=== PATIENT | female | born 1960 | race Caucasian/White ===

== ENCOUNTER 2019-06-06 16:07 | Emergency (ER) | payer BC, OTHER ==
--- NOTE | 2019-06-06 16:19 | ER Document Report ---
ED General - General Chief Complaint: Decreased LOC Stated Complaint: POSSIBLE OVERDOSE Time Seen by Provider: 06/06/19 16:15 Primary Care Provider: [facility] [Provider Group] - Follow up as needed ALEXY KUMAR [NO LOCAL MD] - Follow up as needed Mode of Arrival: Stretcher Information source: Patient - initially response team (ICU md, ED team RNs) Cannot obtain history due to: Altered mental status - HPI Notes: 59 female brought in by son who said about 10 minutes prior to his arrival she had used intravenous heroin but it stopped breathing he therefore drove her immediately to the prior ER entrance at [facility] which is now the ICU therefore ICU team responded found she was not breathing had thready peripheral distal pulses they gave her initially 1 mg IO Narcan then 1 mg IV she is transported to the emergency department here breathing spontaneously verbal opening eyes spontaneously moving all extremities she did vomit once prior to getting into the ED but did not aspirate it appeared per team. in ED she required no further dosing of narcan to sustain spontaneous breathing. allowed to sleep in ED foew hours then talked to her prior to d/c. she has been clean for 3 yr, says in moment of sniffing heroine w/ her son when they were going to ?[employer]? to ask people for money--he scored the "heroine" and then without thinking she did it too. she is too confused to tell me if it was usual source etc. But claims she doesn' tthink she'd do it again [place] as this is her 1st od she says, and it scares here hearing she almost , that her greathing stopped and when they found her she had thready pulses. she is already active in a support/rehab program "[facility] a women's group she says and will immediately be using them as her main support for this. - Related Data Allergies/Adverse Reactions: No Known Allergies Allergy (Unverified 06/06/19 17:21) Past Medical History - General Cannot obtain history due to: Altered mental status - Social History Smoking Status: Unknown if Ever Smoked Frequency of alcohol use: None - she denies any Drug Abuse: Heroin Lives with: Family - and son. son has a [employer] phone and working car. 39 y/o, lives w/ mom/dad. Family History: Reviewed & Not Pertinent Patient has suicidal ideation: No Patient has homicidal ideation: No Review of Systems - Review of Systems Constitutional: No symptoms reported EENT: No symptoms reported Cardiovascular: No symptoms reported Respiratory: No symptoms reported Gastrointestinal: No symptoms reported Genitourinary: No symptoms reported Female Genitourinary: No symptoms reported Musculoskeletal: No symptoms reported Skin: No symptoms reported Hematologic/Lymphatic: No symptoms reported Neurological/Psychological: No symptoms reported Physical Exam - Vital signs Vitals: Temp Resp BP Pulse Ox 97.5 F 26 H 126/85 H 100 06/06/19 16:14 06/06/19 16:14 06/06/19 16:14 06/06/19 16:14 Interpretation: Normal - Notes Notes: after 2nd 2 mg dose narcan, on arrigal to ED pt breathing spontaneously, vs wnl, no hypoxia noted inititally. very sleepy initially arousable coherent then mumbles as falls back asleep in first few hours. then last 1-2 hr pre d/c, able to stay awake answer in full sentences. remembers events leading up to OD. remained nonfocal on serial neuro, VS checks in ED. - General General appearance: Other - see hpi for exam pre narcan. in ED initially arousable to loud voice + mod physical stim briefly before back asleep, can follow commands moving all ext to command. no gross CN deficits, or gross motor deficits. once more awake more thorough neuro exam still intact strength, sensation, fine motor intact x4 extremities. In distress: None - HEENT Head: Normocephalic, Atraumatic. No: Abrasions, Ecchymosis, Open wounds, Tenderness Eyes: Normal. No: Pale conjunctiva, Periorbital ecchymosis, Periorbital edema, Scleral icterus Conjunctiva: No: Injected Extraocular movements intact: Yes Pupils: PERRL Ears: Normal External canal: Normal Tympanic membrane: No: Hemotympanum Nasal: No: Bloody discharge, Eliza deformity, Epistaxis, Clear rhinorrhea Mouth/Lips: No: Laceration, Lesions Mucous membranes: Dry Pharynx: Normal Neck: Normal - Respiratory Respiratory status: No respiratory distress, Depressed respirations Chest status: Nontender Breath sounds: Normal Chest palpation: Normal - Cardiovascular Rhythm: Regular Heart sounds: Normal auscultation Murmur: No Pulses: Normal: Radial, Posterior tibial, Dorsalis pedis Normal capillary refill: Yes - Abdominal Inspection: Normal Distension: No distension Bowel sounds: Normal Tenderness: Nontender Organomegaly: No organomegaly - Back Back: Normal, Nontender. No: Deformity/step-off, CVA tenderness, Vertebra tenderness, Wounds - Extremities General upper extremity: Normal inspection, Nontender, Normal color, Normal ROM, Normal temperature General lower extremity: Normal inspection, Nontender, Normal color, Normal ROM, Normal temperature, Normal weight bearing. 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 No: Combati ve, Psychomotor agitation, Psychomotor depression - Skin Skin Temperature: Warm - no evidence of attemted SQ/IV access on ext exam Skin Moisture: Dry Skin Color: Normal Course - Re-evaluation Re-evalutation: 06/06/19 16:21 After her initial opiate reversal now we will do frequent neuro monitoring to ensure she does not need initiation of a drip that will determine how long her monitoring will be. Otherwise will get collateral information about any other medical problems patient already has. son came soon after pt in ED yelling calling mom addict. i didn't witness this, RNs appropriately told him to leave though. VS cont to remain wnl and cont to be no hypoxia ~ 6hr ED obs. after pt awake last 1-2 hr of her 6hr obs post OD, pt needed to call son, didn't want to bother husand as he'd been having car trouble, but said she didn't mind if i tried to call him on the home phone for more info. no answer. at shift end, RN/patient are to call son for product picker. team to assess son not intoxicated anymore and can safely drive mom home. i didn't ambulate pt at this point. 2b done prior to d/c. 06/13/19 10:08 06/13/19 10:13 - Vital Signs Vital signs: Temp Pulse Resp BP Pulse Ox 97.5 F 21 H 119/78 91 L 06/06/19 16:14 06/07/19 01:31 06/07/19 01:31 06/07/19 01:31 - Laboratory Result Diagrams: 06/06/19 16:20 06/06/19 16:20 Laboratory results interpreted by me: 06/06/19 06/06/19 06/06/19 16:11 16:20 16:20 WBC 16.6 H Absolute Neuts (auto) 9.0 H Absolute Lymphs (auto) 6.3 H Sodium 134.9 L Est GFR ( Amer) 56 L Est GFR (MDRD) Non-Af 47 L Glucose 198 H POC Glucose 212 H AST 146 H Alkaline Phosphatase 182 H Urine Protein Urine Blood Leukocyte Esterase Rfl 06/06/19 16:35 WBC Absolute Neuts (auto) Absolute Lymphs (auto) Sodium Est GFR ( Amer) Est GFR (MDRD) Non-Af Glucose POC Glucose AST Alkaline Phosphatase Urine Protein 30 H Urine Blood SMALL H Leukocyte Esterase Rfl SMALL H - EKG Interpretation by Me EKG shows normal: Sinus rhythm - rate 80, pr 200 qtc 400, Rate: Normal Rhythm: NSR [place]/QRS: No: Right axis deviation, Left axis deviation, RBBB, LBBB When compared to previous EKG there are: Previous EKG unavailable Additional EKG results interpreted by me: 06/06/19 16:50 Reviewed EKG from 1631 today no priors is normal sinus rhythm rate of 83 intervals within normal limits axis within normal limits no ST elevations depressions voltage within normal limits. Critical Care Note - Critical Care Note Total time excluding time spent on procedures (mins): 30 Discharge - Discharge Clinical Impression: Respiratory arrest Accidental heroin overdose Qualifiers: Encounter type: initial encounter Qualified Code(s): T40.1X1A - Poisoning by heroin, accidental (unintentional), initial encounter Condition: Poor Disposition: HOME, SELF-CARE Referrals: LOCAL,NO [NO LOCAL MD] - Follow up as needed [facility] [Provider Group] - Follow up as needed
--- NOTE | 2019-06-06 16:52 | Progress Note ---
Provider Note Provider Note: As the ICU Aviation Technical Systems Specialist, I responded to a medical emergency which occurred just outside the doors of the ICU hospital entrance. Nurses found a woman slumped over in the front passenger side unable to find an assured pulse. She had agonal respirations. They were safely able to lay her on the ground next to the car and began bag mask valve ventilation. They were able to detect a pulse. The son who was present stated that his mother is a heroin user and had been clean, however, used today. When I arrived I found the patient lying on her back on the ground next to a non-running car. Resources were quickly called for including oxygen. When we ascertain that the patient may have taken heroin we asked for Narcan. We were assisted by a local ambulance crew who provided narcan. She was given an IM shot quickly. An intraosseous needle was then placed and she was given an additional 2 injections. I managed her airway during this time. She had minimal respiratory effort and had agonal respirations. We provided a somewhat higher minute ventilation to improve obvious CO2 retention. At this point a backboard was supplied. With careful attention to her neck and back she was placed on the backboard and placed on the stretcher where we continued bag mask valve ventilation and supportive care; an oral airway was inserted. At this point she started to become more awake while she was quickly transported to the emergency room. She had a pulse during the whole process. Enroute to the emergency room she did have an episode of emesis which was quickly recognized and she was placed on her side. While moving into the emergency room she became more awake and was able to give a history. She told the nurses that she had bad veins and had been using heroin. We assisted with stabilization and ABCDE standard trauma/ED protocol.
[2019-06-06 16:54] LABS: ALKALINE PHOSPHATASE 182 U/L (38-126); ANION GAP 14 (5-19); ASPARTATE AMINO TRANSFERASE 146 U/L (14-36); BILIRUBIN,DIRECT 0.4 mg/dL (0.0-0.4); BILIRUBIN,TOTAL 0.6 mg/dL (0.2-1.3); BLOOD UREA NITROGEN 13 mg/dL (7-20); CALCIUM 9.5 mg/dL (8.4-10.2); CARBON DIOXIDE 23 mmol/L (22-30); CHLORIDE 98 mmol/L (98-107); GLUCOSE 198 mg/dL (75-110); POTASSIUM 3.7 mmol/L (3.6-5.0); TOTAL PROTEIN 7.6 g/dL (6.3-8.2)
[2019-06-06 16:55] LABS: ABSOLUTE BASOPHILS # (AUTO) 0.1 10^3/uL (0.0-0.2); ABSOLUTE EOSINOPHILS # (AUTO) 0.1 10^3/uL (0.0-0.6); ABSOLUTE LYMPHOCYTES (AUTO) 6.3 10^3/uL (0.5-4.7); ABSOLUTE MONOCYTES (AUTO) 1.1 10^3/uL (0.1-1.4); BASOPHILS % (AUTO) 0.3 % (0-2); EOSINOPHILS % (AUTO) 0.9 % (0-6); HEMATOCRIT 39.3 % (36.0-47.0); LYMPHOCYTES % (AUTO) 38.2 % (13-45); MEAN CORPUSCULAR HEMOGLOBIN 29.1 pg (27.0-33.4); MEAN CORPUSCULAR HGB CONC 33.1 g/dL (32.0-36.0); MEAN CORPUSCULAR VOLUME 88 fl (80-97); MONOCYTES % (AUTO) 6.8 % (3-13); PLATELET COUNT 299 10^3/uL (150-450); RED BLOOD COUNT 4.47 10^6/uL (3.72-5.28); SEGMENTED NEUTROPHILS % (AUTO) 53.8 % (42-78); TOTAL CELLS COUNTED % (AUTO) 100 %; WHITE BLOOD COUNT 16.6 10^3/uL (4.0-10.5)
[2019-06-06] MEDS ORDERED: ONDANSETRON HCL INJ/PF 4 MG/2 ML SDV ONE (16:55)
[2019-06-06 17:00] LABS: APPEARANCE,URINE SLIGHTLY-CLOUDY; BILIRUBIN,URINE NEGATIVE (NEGATIVE); COLOR,URINE YELLOW; GLUCOSE, URINE NEGATIVE (NEGATIVE); KETONES,URINE NEGATIVE (NEGATIVE); PROTEIN,URINE 30 mg/dL (NEGATIVE); URINE SPECIFIC GRAVITY 1.005; UROBILINOGEN,URINE NEGATIVE mg/dL (<2.0)
[2019-06-06 17:04] LABS: URINE AMPHETAMINES SCREEN NEGATIVE; URINE BARBITURATES SCREEN NEGATIVE; URINE BENZODIAZEPINES SCREEN NEGATIVE; URINE COCAINE SCREEN UNCONFIRMED POSITIVE; URINE MARIJUANA (THC) SCREEN NEGATIVE; URINE METHADONE SCREEN NEGATIVE; URINE PHENCYCLIDINE SCREEN NEGATIVE
[2019-06-06] MEDS ORDERED: ONDANSETRON HCL INJ/PF 4 MG/2 ML SDV IV ONE ×2 (17:07→23:01)
--- NOTE | 2019-06-06 17:14 | EKG REPORT ---
SEVERITY:- NORMAL ECG - SINUS RHYTHM : Confirmed by: Ehsan Baca MD 06-Jun-2019 17:14:04
[2019-06-06] MEDS ORDERED: NALOXONE HCL INJ/PF 0.4 MG/1 ML SDV IV ONE (23:01)
[2019-06-06] MEDS ORDERED: RINGERS SOLUTION,LACTATED 1,000 ML IV ONE (23:03)
[2019-06-06] MEDS ORDERED: NALOXONE HCL INJ 2 MG/2 ML DISP.SYRIN ONE (23:06)
[2019-06-07 01:50] VITALS: BP 119/78
== END 2019-06-07 02:03 | disposition home or self-care (01) ==
LOC: ER 16:07
DX: R09.2 Respiratory arrest (principal); T40.1X1A Poisoning by heroin, accidental (unintentional), initial encounter; R41.82 Altered mental status, unspecified; R11.10 Vomiting, unspecified
CPT/HCPCS: 93005; 96376; 99284; 96361; 96374; 96375; 36415; 87086; 82962; 85025; 80053; 81001; 80307; 93010; J2310; J2405; J7120